=== PATIENT | female | born 1970 | race Caucasian/White ===

== ENCOUNTER → 2018-05-22 11:03 | Outpatient (CLI) | payer OTHER, SELFPAY ==
[2018-05-22 11:59] LABS: Add Manual Diff / Slide Review NO; Basophils Percent Auto 0.9 % (0-2); Eosinophils Percent Auto 0.4 % (2-4); Hematocrit 45.9 % (36-46); Hemoglobin 15.9 g/dL (12.0-16.0); Mean Corpuscular HGB Conc 34.7 % (30-36); Mean Corpuscular Hemoglobin 34.1 PG (26-34); Mean Corpuscular Volume 98.2 fL (80-100); Monocytes Percent Auto 6.4 % (3-14); Neutrophils Absolute Auto 2700 /uL (3000-5900); Neutrophils Percent Auto 56.3 % (50-75); Platelet Count 239 X10^3/uL (150-400); Red Blood Cell Count 4.67 X10^6/uL (4.0-5.2); Red Cell Distribution Width 15.4 % (11.6-14.8); White Blood Cell Count 4.8 X10^3/uL (4.5-11.0)
[2018-05-22 12:24] LABS: Alanine Aminotransferase 46 IU/L (9-52); Albumin 4.9 g/dL (3.5-5.0); Albumin Globulin Ratio 1.6 (1.0-2.8); Alkaline Phosphatase 62 U/L (38-126); Aspartate Aminotransferase 44 IU/L (14-36); BUN Creatinine Ratio 18.8 (6-22); Bilirubin Total 0.3 mg/dL (0.2-1.3); Blood Urea Nitrogen 15 mg/dL (7-17); Calcium 9.5 mg/dL (8.4-10.2); Carbon Dioxide 27 mmol/L (22-32); Chloride 98 mmol/L (98-107); Estimated Glomerular Filt Rate > 60.0 mL/min (>60); Glucose 112 mg/dL (70-100); HEMOLYSIS < 15 (0-50); Potassium 4.7 mmol/L (3.4-5.1); Sodium 143 mmol/L (137-145); Total Protein 7.9 g/dL (6.3-8.2)
[2018-05-22 12:53] LABS: TSH w/ Reflex to FT4 0.98 uIU/mL (0.47-4.68)
== END ==
PROVIDERS: Family Provider Family Medicine; PCP Family Medicine; Visit Provider Family Medicine
DX: F41.1 Generalized anxiety disorder (principal); K21.9 Gastro-esophageal reflux disease without esophagitis; K44.9 Diaphragmatic hernia without obstruction or gangrene; R10.9 Unspecified abdominal pain; R31.9 Hematuria, unspecified
CPT/HCPCS: 36415; 80053; 84443; 85025

== ENCOUNTER → 2018-05-24 06:30 | Outpatient (CLI) | payer OTHER, SELFPAY ==
--- NOTE | 2018-05-24 07:15 | DI.CT.S_ITS ---
PROCEDURE: CT KIDNEY URETER BLADDER (KUB) INDICATIONS: flank pain hematuria TECHNIQUE: Noncontrast 5 mm thick sections acquired from the diaphragms to the symphysis. 5 mm thick coronal and sagittal reformats were then performed. For radiation dose reduction, the following was used: automated exposure control, adjustment of mA and/or kV according to patient size. COMPARISON: [facility], CT, CT ABD PELVIS W CON, 12/10/2015, 8:05. FINDINGS: Image quality: Excellent. Lung bases: Lung bases are clear. Heart size is normal. Urinary system: Both kidneys are normal in size. No kidney stones. No hydronephrosis or perinephric fat stranding. Both ureters appear non-dilated throughout their expected courses. Bladder wall thickness is normal; no calcified bladder stones. Other solid organs: Liver is normal in size. The liver is diffusely hypodense consistent with fatty infiltration. Gallbladder is surgically absent. Pancreas is normal in contours. Spleen is normal in size. No adrenal nodules. Peritoneum and bowel: Unenhanced bowel loops demonstrate normal wall thickness and caliber. The appendix is thin walled and gas filled.There are scattered sigmoid diverticula. No evidence for diverticulitis. No free fluid or air. Nodes and vessels: No retroperitoneal or mesenteric adenopathy by size criteria. Aorta and inferior vena cava are normal in caliber. Abdominal wall: No ventral hernias. Pelvis: No free pelvic fluid. No inguinal hernias or adenopathy. Bones: No suspicious bony lesions. No vertebral body compression fractures. IMPRESSION: 1. No hydronephrosis, nephrolithiasis, hydroureter, or ureterolithiasis. 2. No acute intra-abdominal findings. Normal appendix. Diverticulosis. No acute diverticulitis. 3. Hepatic steatosis. Dictated by: Adelita See M.D. on 05/24/2018 at 9:56 Approved by: Adelita See M.D. on 05/24/2018 at 10:28
== END ==
PROVIDERS: Family Provider Family Medicine; PCP Family Medicine; Visit Provider Family Medicine
DX: R31.9 Hematuria, unspecified (principal); R10.9 Unspecified abdominal pain; K76.0 Fatty (change of) liver, not elsewhere classified; K57.30 Diverticulosis of large intestine without perforation or abscess without bleeding; Z90.49 Acquired absence of other specified parts of digestive tract
CPT/HCPCS: 74176

== ENCOUNTER → 2020-02-19 15:34 | Outpatient (CLI) | payer OTHER, SELFPAY ==
[2020-02-19 16:42] LABS: Hemoglobin A1C% w Est Avg Glu 6.1 % (4.0-6.0)
== END ==
PROVIDERS: Family Provider Family Medicine; PCP Family Medicine; Referring Provider Orthopaedic Surgery; Visit Provider Orthopaedic Surgery
DX: M17.11 Unilateral primary osteoarthritis, right knee (principal); R73.9 Hyperglycemia, unspecified; Z01.818 Encounter for other preprocedural examination
CPT/HCPCS: 36415; 83036; 93005

== ENCOUNTER → 2020-03-10 16:47 | Outpatient (CLI) | payer OTHER, SELFPAY ==
[2020-03-10 17:58] LABS: Add Manual Diff / Slide Review NO; Basophils Absolute Auto 0 /uL (0-100); Basophils Percent Auto 0.3 % (0-2); Eosinophils Absolute Auto 100 /uL (0-450); Hematocrit 38.1 % (36-46); Hemoglobin 13.2 g/dL (12.0-16.0); Lymphocytes Absolute Auto 2800 /uL (1100-4500); Lymphocytes Percent Auto 41.2 % (25-40); Mean Corpuscular HGB Conc 34.6 % (30-36); Mean Corpuscular Hemoglobin 31.9 PG (26-34); Monocytes Absolute Auto 400 /uL (0-900); Monocytes Percent Auto 5.3 % (3-14); Neutrophils Absolute Auto 3500 /uL (1500-7000); Neutrophils Percent Auto 52.2 % (50-75); Platelet Count 160 X10^3/uL (150-400); Red Blood Cell Count 4.14 X10^6/uL (4.0-5.2); Red Cell Distribution Width 15.7 % (11.6-14.8); White Blood Cell Count 6.8 X10^3/uL (4.5-11.0)
[2020-03-10 18:18] LABS: BUN Creatinine Ratio 15.9 (6-22); Blood Urea Nitrogen 11 mg/dL (7-17); Calcium 9.2 mg/dL (8.4-10.2); Carbon Dioxide 32 mmol/L (22-32); Chloride 99 mmol/L (98-107); Estimated Glomerular Filt Rate > 60.0 mL/min (>60); Glucose 95 mg/dL (70-100); HEMOLYSIS < 15 (0-50); Potassium 3.7 mmol/L (3.4-5.1); Sodium 137 mmol/L (137-145)
== END ==
PROVIDERS: PCP Family Medicine; Referring Provider Orthopaedic Surgery; Visit Provider Orthopaedic Surgery
DX: Z01.812 Encounter for preprocedural laboratory examination (principal)
CPT/HCPCS: 36415; 80048; 85025

== ENCOUNTER → 2020-03-12 08:39 | Outpatient (CLI) | payer OTHER, SELFPAY ==
[2020-03-14 09:26] LABS: COVID19 Sendout Not Detected (Not Detect)
== END ==
PROVIDERS: PCP Family Medicine; Visit Provider Physician Assistant
DX: Z11.59 Encounter for screening for other viral diseases (principal)
CPT/HCPCS: 87635

== ENCOUNTER 2020-03-15 06:11 | Day surgery (SDC) | payer OTHER, SELFPAY ==
[2020-03-09 13:58] VITALS: BMI 41.3
[2020-03-15] VITALS (20 sets, daily range): BP systolic 111–155; BP diastolic 52–97; PULSE 72–106; RESP 9–19; TEMP 36–36.8; O2SAT 88–98; BMI 42.3
--- NOTE | 2020-03-15 06:00 | DI.RAD.S_ITS ---
PROCEDURE: XR KNEE RT 1TO2V INDICATIONS: postoperative right knee TECHNIQUE: 2 view(s) of the knee acquired. COMPARISON: None. FINDINGS: Bones: Patient is status post knee joint arthroplasty. Hardware components are in expected positions. Visualized bony structures are intact. Soft tissues: Overlying postoperative changes are noted. IMPRESSION: Post right total knee arthroplasty changes with anatomic right knee alignment. Dictated by: Edin Dye M.D. on 03/15/2020 at 14:00 Approved by: Edin Dye M.D. on 03/15/2020 at 14:00
[2020-03-15] MEDS: CELECOXIB 200 MG CAPSULE PO (06:49)
[2020-03-15] MEDS: PREGABALIN 75 MG CAPSULE PO (06:49)
[2020-03-15] MEDS: ACETAMINOPHEN 325 MG TABLET 975 MG PO (06:49)
[2020-03-15] MEDS: LACTATED RINGERS 1,000 ML 42 ML IV (07:06)
--- NOTE | 2020-03-15 07:34 | PM.PREOP ---
Pre-operative Note COVID-19 COVID-19 status: Negative Result date/Date tested (Pos, Neg/Pending): 03/12/20 Interval Note History & Physical reviewed/Exam performed by Physician: Yes Changes to H&P: No
[2020-03-15] MEDS: CEFAZOLIN 2 GM/100 ML FROZ.PIGGY IV (07:56)
--- NOTE | 2020-03-15 08:28 | SUR.OPER ---
Supine on padded OR bed. Pillow under head, arms secured on padded armboards <90 degree abduction. Safety belt across torso. Non-operative leg secured with tape over blanket over lower leg. Operative leg secured in DeMayo positioner. Foam padded brace at thigh of operative leg.
[2020-03-15] MEDS: BUPIVACAINE 0.25% W/ EPI 30 ML VIAL 60 ML INJ (08:32)
[2020-03-15] MEDS: TRANEXAMIC ACID 1,000 MG VIAL 1000 MG INJ ×2 (08:33→09:03)
[2020-03-15] MEDS: BUPIVACAINE LIPOSOME 266 MG/20 ML VIAL INJ (08:34)
--- NOTE | 2020-03-15 09:28 | P.OP_ITS ---
Operative Date/Time/Diagnoses Date of procedure: 03/15/20 Time of procedure: 09:28 Pre-op diagnosis: Right knee osteoarthritis Post-op diagnosis: same Procedure & Clinicians Procedure: Right total knee replacement Same procedure as scheduled: Yes Indications: The patient has had progressively worsening right knee pain with radiographic changes consistent with arthritis. Non-operative management has failed and the patient has requested total knee replacement. The risks, benefits and alternatives to surgery were discussed with the patient prior to proceeding. Risks discussed included, but were not limited to, failure to relieve pain, stiffness, infection, nerve damage, deep venous thrombosis, pulmonary embolism, stroke, coma, heart attack, permanent paralysis and , as well as the potential need for eventual revision of the prosthetic. Surgeon: Kelton Galvin Bridge Carpenter: Johny Strickland Click Yes if Unassisted: No Anesthesia Type: General, Spinal and Local Operative Notes Findings: Severe lateral and moderate patellofemoral and medial osteoarthritis. Multiple loose bodies in the posterior compartment. Closure Type: primary Specimen(s): none sent Prosthetic devices, grafts, tissues, transplants, or devices: Implants used in this procedure were manufactured by the [employer] and [employer] and included the BCS II Journey total knee replacement with a size 5 right Oxinium femoral component, a size 4 right non porous tibial base plate, a 11 mm cross-linked tibial insert, and a 32 mm oval Jessica II patella. Applied: implant(s) Estimated Blood Loss (mL): 25 Blood products transfused: none Tourniquet time (min): 49 Procedure in detail: The patient was seen in the pre-operative area, where the patient identified the right knee as the operative site and this was marked with my initials. The patient received pre-operative antibiotics, and was taken to the operating room and placed on the operative table in the supine position. After satisfactory anesthesia, a time study technologist out was performed. The right leg was encircled with a tourniquet about the proximal thigh, and the leg was prepared from the toes to the tourniquet with ChloraPrep in the usual fashion and draped through sterile drapes. The leg was elevated and exsanguinated with Eschmark bandage and the tourniquet inflated to 250 mmHg pressure. The knee was approached through an approximately 18 cm incision centered over the patella and carried into the knee through a medial parapatellar arthrotomy. The anterior osteophytes and soft tissues were removed. The rotational landmarks of Rylee's line and the transepicondylar axis were marked on the femur with electrocautery, and intramedullary guide holes for the femur and tibia were created. The distal femoral cut was made in 6 degrees of valgus using the intramedullary guide at the primary cut setting. The proximal tibial cut was then made using the intramedullary guide, taking 7 mm of bone off the less involved medial side. The extension gap was checked and the rotation of the femoral component confirmed with the gap balancing system. The anterior, posterior and chamfer cuts were then made. The posterior osteophytes and soft tissues were then removed. The posterior capsule was injected with part of a mixture of 60 ml 0.25% Marcaine mixed with 20 ml Exparel for post-operative pain control. The remainder of this mixture was injected into the capsule and subcutaneous tissues during cement curing. The tibia was prepared with the rotation set by an extra medullary guide. Trial tibial and femoral components were then placed and the intercondylar notch cut through the femoral trial. Range of motion was 0-130 degrees with further limitation limited by the patient's body habitus, with good stability throughout the range. The patella was then cut to accommodate the patellar prosthetic. There was no need for a lateral release. The trials were then removed, and the femoral hole plugged with a bone plug. The bone was prepared with pulsatile lavage, and dried with a sponge. Cement was applied and the final prosthetics placed. Excess cement was removed during and after cement curing. After confirming there was no extruded cement posteriorly, the final tibial insert was placed. The knee was copiously irrigated and the tourniquet deflated. Hemostasis was obtained. The capsule was closed with interrupted # 2 polyester suture. The subcutaneous layer was closed with 3-0 Vicryl, and the skin with a running 3-0 V-Lock suture and Dermabond. A Mikey dressing was applied and the patient was taken to recovery having tolerated the procedure well. Complications: none Post-operative Condition: stable Disposition: PACU Plan for aftercare: The patient will be maintained on a standard total knee replacement protocol with weight bearing as tolerated. The patient will receive aspirin and sequential compression devices for DVT prophylaxis. The patient will be discharged home when safe for the home environment.
[2020-03-15] MEDS: hydrOXYzine 50 MG/ML INJ 25 MG IM (09:37)
[2020-03-15] MEDS: HYDROMORPHONE 2 MG INJ IV ×3 (09:38→10:54)
[2020-03-15] MEDS: OXYCODONE IR 5 MG TABLET PO ×2 (09:38→10:38)
[2020-03-15] MEDS: fentaNYL 100 MCG/2 ML INJ (09:57)
[2020-03-15] MEDS: ALBUTEROL 2.5 MG/3 ML NEB (ADULT) INH (10:40)
--- NOTE | 2020-03-15 10:43 | SUR.PHASEI ---
pt arrived from OR stating pain was 8/10 and uncomofortable. 2mg IV dilaudid, 5mg oxy and 50 mg fentanyl given to pt. She stated pain down to 4 then 3/10, pt desatted to upper 80's. O2 upeed to 4LPM and then dropped to 2LPM after 3 min. attempted to take off O2 at 1015 however she desatted to low 90's so kept on 2LPM. Around 1040 pt reported pain increasing to 5/10. 2nd 5mg oxy given to pt and she was having tight cough. Pt reported feeling tight chest gave pt albuterol neb per orders.
[2020-03-15] MEDS: fentaNYL 100 MCG/2 ML INJ 50 MCG IV (10:53)
--- NOTE | 2020-03-15 11:03 | SUR.PHASEI ---
Assumed care of pt, dressing c/d/i., )2 increased to 3/l as pt drops down to low 80s.
--- NOTE | 2020-03-15 11:08 | SUR.PHASEI ---
Placed on bed sosa per pt request.
--- NOTE | 2020-03-15 11:34 | SUR.PHASEI ---
Episode of diaphoresis, ice pack to back of neck and cool wash cloth to head. Bedpan attempted, scant urine in bedpan.
--- NOTE | 2020-03-15 11:35 | SUR.PHASEI ---
Report back to [facility].
[2020-03-15] MEDS: LACTATED RINGERS 1,000 ML 100 ML IV (12:31)
[2020-03-15] MEDS: lisinopriL 20 MG TABLET 40 MG PO (12:32)
[2020-03-15] MEDS: PANTOPRAZOLE 40 MG TABLET PO (12:38)
[2020-03-15] MEDS: hydrOXYzine pamoate 25 MG CAPSULE PO ×2 (12:52→18:54)
[2020-03-15] MEDS: IBUPROFEN 400 MG TABLET PO ×3 (12:52→20:21)
[2020-03-15] MEDS: INFLUENZA VACCINE 0.5 ML SYRINGE IM (12:53)
[2020-03-15] MEDS: OXYCODONE IR 10 MG TABLET PO ×4 (13:16→22:13)
--- NOTE | 2020-03-15 14:14 | PC.NURSE ---
Safe hand off from [facility]. Patient arrived via portable bed to floor at 1300. Patient has 2 liters NC, patient de-sats while sleeping to the mid 80's, she is 95% on 2 liters. VSS, tachycardic in the 90's. Patient is having pruritus on her back and erythema, telephoned Dr. Galvin for Benadryl and was told to use the 25mg Vistaril, patient seems to have relief Vistaril. Patient denies nausea, but has pain 6-7/10, medicated w/ 10mg Oxycodone PRN. PT tried to work w/ patient but patient was too sleepy.
--- NOTE | 2020-03-15 14:27 | PT-IP ANOTE ---
Recieved PT orders and reviewed chart. Met with pt and gathered PLOF but pt was too sleepy to participate safely with PT at this time. Will attempt to see pt later today or in the morning.
[2020-03-15] MEDS: ACETAMINOPHEN 325 MG TABLET 650 MG PO ×2 (15:25→20:20)
--- NOTE | 2020-03-15 16:18 | PT.IIE ---
Current Diagnoses Unilateral primary osteoarthritis, right knee (03/15/20) Surgery Performed Operation Date: 03/15/20 07:45 Actual Procedures p Total Knee Arthroplasty(Right) - Kelton Galvin MD Surgical History (Last Updated 03/09/20 @ 14:13 by Anusha Servin RN) Anesthesia (Resolved) History of arthroscopy of both knees (Acute) History of section (Acute) History of hand surgery (Resolved) History of partial hysterectomy (Acute) History of tonsillectomy and adenoidectomy (Acute) Status post cholecystectomy Status post osteotomy (Acute) Medical History (Last Updated 03/09/20 @ 14:13 by Anusha Servin RN) Acne (Chronic ~1979) Ankle pain (Chronic) Anxiety (Acute) Chicken pox (Resolved ~1970) Depression (Chronic ~1973) Foot pain (Chronic ~1989) Fractures (Chronic ~1989) Hay fever (Chronic ~1977) Headache (Chronic ~1979) HTN (hypertension) (Acute) IBS (irritable bowel syndrome) (Acute) Migraines (Chronic ~1979) Osteoporosis (Chronic ~1989) Physical Therapy Inpatient Evaluation/Re-Eval M1 PT/OT-IP Prior Functional Status Start: 03/15/20 13:37 Freq: NEEDED Status: Active Protocol: Document 03/15/20 15:46 AW (Rec: 03/15/20 16:18 AW [id number]) Medical Review Prior Functional Status Medical History Reviewed Yes Communication WNL. Pt is able to make needs known. No known deficits Mobility and Gait Pt states she is independent with household and short distance community ambulation without assistive device. Activities of Daily Living and IADL's Independent with I/ADL's. Pt is an active corporate driver. Social History Household Members spouse,children Living Arrangements House Number of Floors (Floors) One Floor Number of Stairs To Enter/Railing? 2 [place] without railing. Pt states there is a wall on the right side of the steps going up. 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 She lives with her , Johny, who will be available and able to assist as needed at discharge. M2 PT-IP Current Condition Start: 03/15/20 13:37 Freq: NEEDED Status: Active Protocol: Document 03/15/20 15:46 AW (Rec: 03/15/20 16:18 AW [id number]) Physical Therapy Current Condition Current Condition Evaluation Date 03/15/20 Treatment Diagnosis R TKA; difficulty in walking Onset Date 03/15/20 Weight Bearing Status Weight Bearing Status Weight Bear as Tolerated M3 PT-IP Subjective Start: 03/15/20 13:37 Freq: NEEDED Status: Active Protocol: Document 03/15/20 15:46 AW (Rec: 03/15/20 16:18 AW [id number]) Subjective Physical Therapy Visit Type Type Initial Evaluation Visit Start Time 14:08 Visit Stop Time 15:45 Total Visit Minutes 38 Notes Split visits [id number] and [id number] Physical Therapy Visit Comments Patient Comments Pt is requesting to use the commode Patient Goals Pt hopes to return home at discharge with her providing assist Therapy Pain Assessment Pain When Pain Assessed At Rest Pain Present Pain Present Pain Reported Location right knee Intensity 6 Scale Used increased with mobility Pain Management Techniques Apply Cold,Re-positioning, Timing of Activity with Medications M4 PT-IP Mobility and Gait Start: 03/15/20 13:37 Freq: NEEDED Status: Active Protocol: Document 03/15/20 15:46 AW (Rec: 03/15/20 16:18 AW [id number]) PT-Bed Mobility Assessment Supine to Sit Supine to Sit Minimal Assistance,1 Person Assistance,Head of Bed Elevated,Bedrails Sit to Supine Sit to Supine Minimal Assistance,1 Person Assistance,Head of Bed Elevated Scooting Scooting to Edge of Bed Contact Guard Assistance PT-Transfer Assessment Sit to and From Stand Sit to and from Stand Moderate Assistance,1 Person Assistance,Use of Upper Extremities Equipment Transfer Assistive Device Gait Belt,Front Wheeled Walker Transfers Transfer Destination Bedside Commode Transfer Technique Stand Step Pivot Transfer Ability Level of Assist Moderate Assistance,1 Person Assistance,Use of Upper Extremities Comments Mobility Comments Pt was in bed with HOB at 45 degrees when PT and SPT entered. Pt was requesting to use the BSC. With HOB raised, pt required min assist x 1 to move her legs to the left side of the bed. She was able to sit EOB with UE support while MANAGER CARE MANAGEMENT located a bariatric commode. Pt completed sit to stand mod A x 1 with FWW and transferred via step pivot to the [facility] set up 90 degrees to her right. Pt required verbal cues for sequencing the transfer safely. Pt was left in the room to void with call light at her side. She rang appropriately when ready and was able to stand from the commode with cues to use the arm rests to push with BUE mod A x 1. MANAGER CARE MANAGEMENT assisted with pericare while PT provided balance assist. She pivoted again to her left side to return to the bed. Pt completed sit to supine min A x 1 with assist to elevate her operative leg to the bed. Pt was left in the bed with call light and all needs within reach. White board was updated . Gait Assessment Comments Gait Comments Transfer only on evaluation. Stair Climbing Assessment Comments Stair Climbing Comments Not assessed. PT-Balance Assessment Sitting Balance and Reactions Static Sitting Balance Ability Good Dynamic Sitting Balance Ability Good Standing Balance and Reactions Static Standing Balance Ability Fair Dynamic Standing Balance Ability Fair Device Used FWW M5 PT-IP Objective Assessments Start: 03/15/20 13:37 Freq: NEEDED Status: Active Protocol: Document 03/15/20 15:46 AW (Rec: 03/15/20 16:18 AW [id number]) Orientation Orientation/Cognition Level of Alertness Alert Orientation Name,Day of Week,Place, Situation Language Function Ability No Deficits Noted Safety Awareness Understands Safety Issues Memory Description No Deficits Noted Gross Range of Motion Lower Extremity ROM Assessment Within Functional Limits Strength Lower Extremity Strength Assessment Right Impaired Comments Strength Comments LLE grossly 4/5 to 4+/5 Sensation Assessment Sensation Gross Sensation WNL Comments Sensation Comments Pt denies numbness in BLE. M6 PT-IP Treatment Start: 03/15/20 13:37 Freq: NEEDED Status: Active Protocol: Document 03/15/20 15:46 AW (Rec: 03/15/20 16:18 AW [id number]) Physical Therapy Treatment Exercises Exercises Ankle Pumps,Gluteal Sets Education Education Provided Precautions,Weight Bearing Status,Post-Op Packet,Safety Other Treatments Other Treatment Performed Provided education on role of PT, plan of care, weightbearing status, and safe use of FWW. M7 PT-IP Assessment and Plan Start: 03/15/20 13:37 Freq: NEEDED Status: Active Protocol: Document 10/05/20 15:46 AW (Rec: 03/15/20 16:18 AW [id number]) PT Summary Assessment and Plan Potential Rehabilitation Potential Good Status of Condition at Evaluation Evolving Summary Impairments Pain,ROM,Strength,Balance,Bed Mobility,Transfers,Gait, Activity Tolerance Assessment Summary Jazmin is a 49 yo woman seen for PT evaluation on POD0 following R TKA. She is independent in all regards at baseline. She lives with her who will be available and able to assist at discharge. On evaluation, pt required min to mod assist for bed mobility and transfer to the [facility]. PT anticipates she will progress as she stabilizes medically and will be safe to discharge home with assist and outpatient PT. Pt states she had a pre-op PT appointment and has follow up appointments already scheduled . Goals Bed Mobility Goal Standby Assistance Transfer Goal Standby Assistance,Front Wheeled Walker Gait Goal Standby Assistance,Front Wheel Walker Gait Distance 150 Other Goals - up/down 2 steps with R rail ascending CGA Days to Meet Goals 3 Frequency of Treatment Frequency Of Treatment Twice a Day Treatment Plan Physical Therapy Treatment Plan Bed Mobility Training,Transfer Training,Gait Training, Therapeutic Exercise,Balance Retraining,Post Op Education, Discharge Planning,Hot or Cold Pack,Neuromuscular Re-ed Other Recommendations and Next Treatment bed mobility, transfers, gait Focus with FWW, assess safety on stairs Recommendations To Nursing Amount of Assist Needed 1 Person Assist Discharge Recommendations PT Discharge Recommendations Home with Assistance, Outpatient PT Transportation Needs at Discharge Private Vehicle
[2020-03-15] MEDS: QUETIAPINE 25 MG TABLET 50 MG PO (20:20)
[2020-03-15] MEDS: ASPIRIN EC 81 MG TABLET PO (20:20)
[2020-03-15] MEDS: DOCUSATE 100 MG CAPSULE PO (20:20)
[2020-03-15] MEDS: BUSPIRONE 15 MG TABLET 30 MG PO (20:21)
[2020-03-16 00:20] VITALS: BP 135/94; PULSE 84; RESP 14; TEMP 36; O2SAT 97
[2020-03-16] MEDS: OXYCODONE IR 10 MG TABLET PO (00:41)
[2020-03-16] MEDS: IBUPROFEN 400 MG TABLET PO ×4 (00:42→12:35)
[2020-03-16] MEDS: hydrOXYzine pamoate 25 MG CAPSULE PO ×3 (00:43→11:09)
[2020-03-16] MEDS: diphenhydrAMINE 50 MG/ML VIAL 25 MG IV (02:52)
[2020-03-16 03:05] VITALS: BP 125/62; PULSE 76; RESP 14; TEMP 36; O2SAT 96
[2020-03-16 06:24] LABS: Hematocrit 32.2 % (36-46); Hemoglobin 11.3 g/dL (12.0-16.0)
[2020-03-16] MEDS: HYDROMORPHONE 0.5 MG INJ 0.2 MG IV (06:43)
--- NOTE | 2020-03-16 07:41 | PM.DS.1 ---
History of Present Illness History of Present Illness Date Patient Seen: 03/16/20 Time Patient Seen: 07:41 Chief complaint: Right Total Knee Arthroplasty Narrative: The history and physical is contained in the chart in a previously completed note. Please refer to that note for this information. Discharge Providers Provider Discharge Date: 03/16/20 Primary care physician: Juanpablo Eid MD Consults: 03/15/20 11:59 Consult to Discharge Planning Routine Comment: Consult to Physical Therapy Evaluate & Treat Comment: Physician Instructions: postop TKA protocol Consult to Respiratory Therapy Evaluate & Treat Comment: Physician Instructions: Evaluate and treat Discharge provider: Kelton Galvin MD Summary Hospital Course Discharge Diagnosis: 1. Right knee osteoarthritis 2. Post hemorrhagic anemia Hospital Course: The patient was admitted to the hospital and taken directly to the operating room on March 15, 2020. She underwent a right total knee replacement without complication. She did have pain control difficulties and difficulties with itching from the narcotics postoperatively. This seemed to improve marginally with oral Dilaudid. At the time of this dictation it is likely she will be able to go home today after physical therapy. Status at Discharge Cognitive/behavioral status at discharge: oriented Functional status at discharge: uses cane/walker Overall status at discharge: patient is progressing back to baseline Time Spent with Patient Time spent: Less than 30 minutes Exam Vital Signs (past 8 hours): - 03/16/20 00:20 03/16/20 03:05 Temperature 96.8 F L 96.8 F L Pulse Rate 84 76 Respiratory Rate 14 14 Blood Pressure 135/94 H 125/62 Pulse Oximetry 97 96 Oxygen Delivery Method Room Air Oxygen Flow Rate 0 Narrative Exam Narrative: Right knee wound is dressed with no drainage on the bandage. Calf is soft. Light touch and motion are intact in the right lower extremity. Objective Labs Result Diagrams: 03/16/20 06:12 Labs: Laboratory Results - last 24 hr 03/16/20 06:12 Hgb 11.3 L Hct 32.2 L Discharge Assessment & Plan Assessment and Plan Assessment: The patient is stable postoperative day 1 status post right total knee replacement although she is having some mild pain control issues and trouble with itching from the narcotics. She has been given Vistaril as an antihistamine. She has a mild, anticipated post hemorrhagic anemia. Plan of Treatment: Physical therapy today with likely discharge later in the day. She will continue on aspirin for DVT prophylaxis at home. She has been given prescriptions for Vistaril and oral hydromorphone. In addition instructions have been given for the use of Tylenol, and ibuprofen for additional non narcotic pain control. Follow-up will be in my office in 10-14 days. Discharge Plan Discharge Plan Patient Disposition: Home Discharge Med Rec/Prescriptions Prescriptions: New acetaminophen 325 mg Tablet 650 mg PO TID 30 Days Qty: 180 RF: 0 aspirin 81 mg Tablet,Delayed Release (Dr/Ec) 81 mg PO BID 42 Days Qty: 84 RF: 0 hydromorphone 2 mg Tablet 2 mg PO Q4HR PRN (Reason: Pain, Severe (7-10)) Qty: 40 RF: 0 ibuprofen 400 mg Tablet 400 mg PO Q4HR 30 Days RF: 0 hydroxyzine pamoate 25 mg Capsule 25 mg PO Q6HR PRN (Reason: Nausea) Qty: 30 RF: 0 Continued albuterol sulfate 90 mcg/actuation HFA aerosol inhaler 2 puff INHALATION Q6H PRN (Reason: shortness of breath or wheezing) Qty: 8.5 RF: 3 duloxetine [Cymbalta] 30 mg capsule,delayed release(DR/EC) 30 mg PO DAILY Qty: 30 RF: 3 quetiapine [Seroquel] 50 mg tablet 50 mg PO BEDTIME Qty: 30 RF: 3 metformin 500 mg tablet 500 mg PO DAILY Qty: 90 RF: 1 (DME) DISABLED PARKING PERMIT See Rx Instructions .ROUTE .MEDSUPPLY Qty: 1 RF: 0 omeprazole 40 mg capsule,delayed release(DR/EC) 40 mg PO BID Qty: 90 RF: 5 buspirone 30 mg tablet 30 mg PO BID Qty: 60 RF: 5 lisinopril 40 mg tablet See Rx Instructions .ROUTE .COMPLEX Qty: 30 RF: 5 Discontinued ketoconazole 2 % cream See Rx Instructions TOP BID Qty: 60 RF: 1 Follow up/Referrals: Juanpablo Eid MD [Primary Care Provider] - Kelton Galvin MD [Physician] - 2 Weeks Discharge Orders: Discharge (Order); Ordered 03/16/20 Ordered By: Kelton Galvin Provider Discharge Instructions Diet: Diet as Tolerated and Carb-consistent/Diabetic Activity: You may bear weight as tolerated on your right knee. Cold/Heat Therapy: Apply ice to the right knee for 15 minutes every hour as needed for pain control. Skin/Wound/Dressing Care Report to your healthcare provider any signs of infection, such as:: chills, fever, night sweats, increased pain, unusual drainage and unusual redness Dressing: You may remove the Jeffrey wrap and 3 days and shower normally. Remove the battery pack from the deeper dressing and shower with the deeper dressing in place. Visit Report/Discharge Packet Instructions: DI for Knee Replacement Stand Alone Forms: Surgery Discharge Discharge Data Primary Care Provider: Juanpablo Eid Attending Provider: Kelton Galvin Quality VTE Deep Vein Thrombosis/Pulmonary Embolism Present on Admission: No
[2020-03-16 08:00] VITALS: BP 111/74; PULSE 76; RESP 20; TEMP 36.6; O2SAT 97
[2020-03-16] MEDS: DULOXETINE 30 MG CAPSULE PO (08:35)
[2020-03-16] MEDS: HYDROMORPHONE 2 MG TABLET PO ×2 (08:35→12:35)
[2020-03-16] MEDS: ACETAMINOPHEN 325 MG TABLET 650 MG PO ×2 (08:35→12:35)
[2020-03-16] MEDS: DOCUSATE 100 MG CAPSULE PO (08:36)
[2020-03-16] MEDS: ASPIRIN EC 81 MG TABLET PO (08:36)
[2020-03-16] MEDS: METFORMIN HCL 500 MG TABLET PO (08:36)
[2020-03-16] MEDS: PANTOPRAZOLE 40 MG TABLET PO (08:36)
[2020-03-16] MEDS: lisinopriL 20 MG TABLET 40 MG PO (08:36)
[2020-03-16] MEDS: BUSPIRONE 15 MG TABLET 30 MG PO (08:38)
[2020-03-16 09:40] VITALS: PULSE 84; RESP 18; O2SAT 96
--- NOTE | 2020-03-16 10:24 | CM.DANOTE ---
DCP: Case received, EMR reviewed and met with patient. Introduced self and role. Was able to obtain information from patient regarding her baseline activity status and living situation prior to her having surgery. DCP assessment completed with information currently available. Patient is a 49 year old female who admitted yesterday morning to the care of the orthopedic team. PCP: Dr. Eid. Payer: confirmed: [facility]. Patient came to the hospital via private vehicle for a surgical procedure. She had right total knee arthroplasty. Patient has history of osteoarthritis. Met with patient in her room. She was sitting up in bed, alert and oriented, pleasant. She is independent at baseline, but she purchased a cane and walker to use post surgery. She resides with her , Everette, in [place]. She confirmed that he will assist her at discharge. She is currently employed with [employer], and works from home. P: Patient is to be discharged home today after cleared by Evangelina Cruz RN/[employer]
--- NOTE | 2020-03-16 10:27 | PT.IPTN ---
Current Diagnoses Unilateral primary osteoarthritis, right knee (03/15/20) Surgery Performed Operation Date: 03/15/20 07:45 Actual Procedures p Total Knee Arthroplasty(Right) - Kelton Galvin MD Physical Therapy Treatment Note M2 PT-IP Current Condition Start: 03/15/20 13:37 Freq: NEEDED Status: Active Protocol: Document 03/15/20 15:46 AW (Rec: 03/15/20 16:18 AW [id number]) Physical Therapy Current Condition Current Condition Evaluation Date 03/15/20 Treatment Diagnosis R TKA; difficulty in walking Onset Date 03/15/20 Weight Bearing Status Weight Bearing Status Weight Bear as Tolerated M3 PT-IP Subjective Start: 03/15/20 13:37 Freq: NEEDED Status: Active Protocol: Document 03/16/20 09:52 CLB (Rec: 03/16/20 11:44 CLB [email or web address]) Subjective Physical Therapy Visit Type Type Treatment Note Visit Start Time 09:52 Visit Stop Time 10:27 Total Visit Minutes 35 Number of BINDER LAYER Visits 1 Physical Therapy Visit Comments Patient Comments Pt agreeable to do therapy Therapy Pain Assessment Pain When Pain Assessed At Rest Pain Present Pain Present Pain Reported Location right knee Intensity 4 Scale Used 5/10 w/ambulation, 6/10 after exercise Pain Management Techniques Apply Cold,Re-positioning, Timing of Activity with Medications M4 PT-IP Mobility and Gait Start: 03/15/20 13:37 Freq: NEEDED Status: Active Protocol: Document 03/16/20 09:52 CLB (Rec: 03/16/20 11:44 CLB [email or web address]) PT-Bed Mobility Assessment Sit to Supine Sit to Supine Standby Assistance Scooting Scooting to Edge of Bed Standby Assistance PT-Transfer Assessment Sit to and From Stand Sit to and from Stand Standby Assistance Equipment Transfer Assistive Device Gait Belt,Front Wheeled Walker Transfers Transfer Destination Bed Transfer Technique Stand Step Pivot Transfer Ability Level of Assist Standby Assistance Comments Mobility Comments Pt in chair and peformed HS with hold, pt then stood from chair SBA and ambulated in robert to stairs ~120ft w/FWW/ SBA, pt climbed platform step SBA and returned to room ~ 120ft. Pt required SBA for stand>sit>supine and performed the remainder of her exercises in supine. Left pt in bed with all needs within reach and alarm on. Gait Assessment Gait Gait Assistance Required: Standby Assistance,1 Person Assist Distance (Feet) 240 Able to Maintain Weight Bearing Status Yes During Gait Assistive Devices Assistive Device Gait Belt,Front Wheeled Walker Orthotic/Prosthetic Devices or Brace: No Gait Deviations General Gait Pattern Antalgic,Decreased Stride Length,Decreased Feet Clearance,Step-to Gait Factors Limiting Gait Function Factors Limiting Gait Function Decreased Activity Tolerance, Decreased Strength,Pain,Poor Balance Comments Gait Comments Pt able to ambulate ~120ft w/ FWW/SBA, pt used step to gait pattern with heavy use of UE's on walker. Stair Climbing Assessment Evaluation Level of Assist On Stairs Standby Assistance,1 Person Assistance Devices Stair Climbing Assistive Devices Front Wheel Walker Technique/Endurance Stair Climbing Direction Ascend and Descend Stair Climbing Technique Step to Step Number of Steps Climbed 1 Stair Climbing Set # Repetitions (reps) 2 Comments Stair Climbing Comments Pt required SBA for platform steps with FWW. M5 PT-IP Objective Assessments Start: 03/15/20 13:37 Freq: NEEDED Status: Active Protocol: Document 03/15/20 15:46 AW (Rec: 03/15/20 16:18 AW [id number]) Orientation Orientation/Cognition Level of Alertness Alert Orientation Name,Day of Week,Place, Situation Language Function Ability No Deficits Noted Safety Awareness Understands Safety Issues Memory Description No Deficits Noted Gross Range of Motion Lower Extremity ROM Assessment Within Functional Limits Strength Lower Extremity Strength Assessment Right Impaired Comments Strength Comments LLE grossly 4/5 to 4+/5 Sensation Assessment Sensation Gross Sensation WNL Comments Sensation Comments Pt denies numbness in BLE. M6 PT-IP Treatment Start: 03/15/20 13:37 Freq: NEEDED Status: Active Protocol: Document 03/16/20 09:52 CLB (Rec: 03/16/20 11:44 CLB [email or web address]) Physical Therapy Treatment Exercises Exercises Ankle Pumps,Gluteal Sets,Quad Sets,Heel Slides,Straight Leg Raises,Short Arc Quads,Passive Knee Extension Hang Education Education Provided Precautions,Weight Bearing Status,Post-Op Packet,Safety M7 PT-IP Assessment and Plan Start: 03/15/20 13:37 Freq: NEEDED Status: Active Protocol: Document 03/16/20 09:52 CLB (Rec: 03/16/20 11:44 CLB [email or web address]) PT Summary Assessment and Plan Potential Rehabilitation Potential Good Status of Condition at Evaluation Evolving Summary Impairments Pain,ROM,Strength,Balance,Bed Mobility,Transfers,Gait, Activity Tolerance Assessment Summary Pt is SBA for all mobility and was able to ambulate ~240ft w /FWW/SBA and perform platform stair climbing with use of FWW /SBA. Pt seems able to d/c home when medically stable. Goals Bed Mobility Goal Standby Assistance Transfer Goal Standby Assistance,Front Wheeled Walker Gait Goal Standby Assistance,Front Wheel Walker Gait Distance 150 Other Goals - up/down 2 steps with R rail ascending CGA Days to Meet Goals 3 Frequency of Treatment Frequency Of Treatment Twice a Day Treatment Plan Physical Therapy Treatment Plan Bed Mobility Training,Transfer Training,Gait Training, Therapeutic Exercise,Balance Retraining,Post Op Education, Discharge Planning,Hot or Cold Pack,Neuromuscular Re-ed Recommendations To Nursing Amount of Assist Needed 1 Person Assist Discharge Recommendations PT Discharge Recommendations Home with Assistance, Outpatient PT Transportation Needs at Discharge Private Vehicle
--- NOTE | 2020-03-16 14:38 | PC.NURSE ---
Discharge: Po pain meds changed to dilaudid, pt reports this has been much more effective then the oxy. Vds w/out diff. tolerates diet without problems. Still itchy but not as bad as she was last night. MD here this am and gave d/c instructions. PT here and they gave pt her mobility instructions and she is considered safe to d/c home. Reviewed wound care w/GONZALO and given printed information. If she has any problems at all with drain function or if dressing saturates or becomes loose she is to call the office for further instructions. Reviewed d/c packet and understood. Given rx. Pt d/c home via auto w/spouse.
== END 2020-03-16 13:00 | disposition home or self-care (01) ==
LOC: OR 06:13 → AC 08:36
PROVIDERS: PCP Family Medicine; Referring Provider Family Medicine; Visit Provider Orthopaedic Surgery
PROC: 0SRC0JZ Replacement of Right Knee Joint with Synthetic Substitute, Open Approach (ICD-10-PCS; CPT 27447; principal; 2020-03-15 07:45)
DX: M17.11 Unilateral primary osteoarthritis, right knee (principal); E11.9 Type 2 diabetes mellitus without complications; I10 Essential (primary) hypertension; Z79.84 Long term (current) use of oral hypoglycemic drugs; J45.909 Unspecified asthma, uncomplicated; E66.9 Obesity, unspecified; Z68.41 Body mass index [BMI] 40.0-44.9, adult; D50.0 Iron deficiency anemia secondary to blood loss (chronic)
CPT/HCPCS: 27447; 36415; 73560; 85014; 85018; 90471; 90656; 94762; 97110; 97116; 97161; 97530; C1776; A9270; C9290; J0690; J1100; J1170; J1200; J2250; J2405; J2704; J3010; J3410; J7613; Q2038

== ENCOUNTER → 2021-02-02 16:48 | Outpatient (CLI) | payer OTHER, SELFPAY ==
[2020-03-15 12:02] VITALS: BMI 42.3
--- NOTE | 2021-02-02 16:50 | DI.RAD.S_ITS ---
PROCEDURE: XR KNEE RT 3V INDICATIONS: knee pain - multiple falls TECHNIQUE: 3 views of the knee were acquired. COMPARISON: [facility], CR, XR KNEE 4+ VIEWS RIGHT, 01/07/2020, 9:07. [facility], CR, XR KNEE RT 1TO2V, 03/15/2020, 9:43. FINDINGS: Bones: Expected alignment of right knee arthroplasty. Residual lateral patellar tilt. The hardware appears intact. No evidence of loosening Soft tissues: No joint effusion. No suspicious soft tissue calcifications. IMPRESSION: Expected postoperative alignment of right knee arthroplasty. Dictated by: Fer Chavis M.D. on 02/03/2021 at 9:15 Approved by: Fer Chavis M.D. on 02/03/2021 at 9:18
--- NOTE | 2021-02-02 16:50 | DI.RAD.S_ITS ---
PROCEDURE: XR KNEE LT 3V INDICATIONS: knee pain - multiple falls TECHNIQUE: 3 views of the knee were acquired. COMPARISON: [facility], CR, XR KNEE RT 1TO2V, 03/15/2020, 9:43. FINDINGS: Bones: No acute fracture. Chronic deformity of the proximal tibia which may represent postsurgical and or posttraumatic sequela. Recommend clinical correlation. There is moderate joint degeneration with bulky osteophyte formation. Moderate narrowing of the medial joint space Soft tissues: No joint effusion. No suspicious soft tissue calcifications. IMPRESSION: Moderate left knee osteoarthritis. No definite acute fracture. If the patient's pain or other symptoms persist, consider further evaluation with MRI Dictated by: Fer Chavis M.D. on 02/03/2021 at 9:12 Approved by: Fer Chavis M.D. on 02/03/2021 at 9:15
== END ==
PROVIDERS: PCP Family Medicine; Referring Provider Family Medicine; Visit Provider Family Medicine
DX: M25.562 Pain in left knee (principal); M25.561 Pain in right knee; M17.12 Unilateral primary osteoarthritis, left knee; Z98.890 Other specified postprocedural states; R29.6 Repeated falls; Z96.651 Presence of right artificial knee joint
CPT/HCPCS: 73562

== ENCOUNTER → 2021-04-13 15:24 | Outpatient (CLI) | payer OTHER, SELFPAY ==
[2020-03-15 12:02] VITALS: BMI 42.3
[2021-04-13 16:24] LABS: Hemoglobin A1C% w Est Avg Glu 5.1 % (4.0-6.0)
== END ==
PROVIDERS: PCP Family Medicine; Referring Provider Physician Assistant; Visit Provider Physician Assistant
DX: R73.01 Impaired fasting glucose (principal)
CPT/HCPCS: 36415; 83036

== ENCOUNTER → 2021-09-20 09:47 | Outpatient (CLI) | payer OTHER, SELFPAY ==
[2020-03-15 12:02] VITALS: BMI 42.3
[2021-09-20 12:03] LABS: Alanine Aminotransferase 20 IU/L (<35); Albumin 4.3 g/dL (3.5-5.0); Albumin Globulin Ratio 1.5 (1.0-2.8); Alkaline Phosphatase 56 U/L (38-126); Aspartate Aminotransferase 22 IU/L (14-36); Bilirubin Total 0.5 mg/dL (0.2-1.3); Bilirubin Unconjugated 0.3 mg/dL (0.0-1.1); Cholesterol 139 mg/dL (140-199); Globulin 2.8 g/dL (1.7-4.1); HDL Cholesterol 50 mg/dL (40-60); HEMOLYSIS < 15 (0-50); LDL Cholesterol Calculated 57 mg/dL (<100); Total Protein 7.1 g/dL (6.3-8.2); Triglycerides 160 mg/dL (35-150)
== END ==
PROVIDERS: PCP Family Medicine; Referring Provider Physician Assistant; Visit Provider Physician Assistant
DX: E78.2 Mixed hyperlipidemia (principal); F10.11 Alcohol abuse, in remission
CPT/HCPCS: 36415; 80061; 80076